=== PATIENT | male | born 1980 | race Two or more races ===

== ENCOUNTER 2018-06-30 08:15 | Emergency (ER) | payer OTHER ==
[~2018-06-30] VITALS: Ht 165.1 cm; Wt 73.0 kg
[2018-06-30] MEDS ORDERED: cloNIDine HCL 0.1 MG TAB PO ONE (08:30)
[2018-06-30 08:45] LABS: Basophils # (auto) 0.1 uL; Basophils % (auto) 0.8 % (0.0-2.0); Eosinophils # (auto) 0.4 uL; Eosinophils % (auto) 4.1 % (0.0-7.0); Hematocrit 48.2 % (41.0-53.0); Hemoglobin 16.2 g/dL (13.5-17.5); Lymphocytes % (auto) 34.4 % (10.0-50.0); Mean Corpuscular Hgb Conc. 33.6 g/dL (32.0-36.0); Mean Corpuscular Volume 86.2 fL (80.0-100.0); Monocytes # (auto) 0.3 uL; Monocytes % (auto) 3.9 % (0.0-12.0); Neutrophils % (auto) 56.8 % (37.0-80.0); Platelet Count (auto) 392 10^3/uL (140-450); Red Blood Cells 5.59 10^6/uL (4.5-5.90); Red Cell Distribution Width 13.7 % (11.8-14.3); White Blood Cell 8.8 10^3/uL (4.4-10.8)
[2018-06-30 09:13] LABS: Anion Gap 5 (5-15); Blood Urea Nitrogen 20 mg/dL (7-18); Calcium 8.5 mg/dL (8.5-10.1); Carbon Dioxide 28 mmol/L (21-32); Chloride 105 mmol/L (98-107); Glucose 155 mg/dL (74-106); Magnesium 2.4 mg/dL (1.6-2.6); Potassium 3.7 mmol/L (3.5-5.1); Sodium 138 mmol/L (136-145)
[2018-06-30 09:21] LABS: Alanine Aminotransferase 23 U/L (16-61); Albumin 2.1 g/dL (3.4-5.0); Alkaline Phosphatase 76 U/L (45-117); Aspartate Aminotransferase 22 U/L (15-37); BUN/Creatinine Ratio 11.2; Bilirubin, Total 0.2 mg/dL (0.2-1.0); GFR African American 55 mL/min; GFR Non-African American 45 mL/min; Total Protein 7.2 g/dL (6.4-8.2)
[2018-06-30 10:38] LABS: Urine Bacteria NONE SEEN /hpf (None Seen); Urine Blood 1+ /uL (Negative); Urine Budding Yeast OCCASIONAL /hpf (None Seen); Urine Hyaline Cast FEW /lpf (0 - 2); Urine Specific Gravity 1.006 (1.001-1.035); Urine WBC 1 /hpf (0 - 3)
[2018-06-30 11:05] VITALS: BP 154/84
== END 2018-06-30 11:18 | disposition home or self-care (01) ==
LOC: ER 08:21
DX: I10 Essential (primary) hypertension (principal); R51 Headache; E43 Unspecified severe protein-calorie malnutrition; Z68.26 Body mass index [BMI] 26.0-26.9, adult
CPT/HCPCS: 36415; 70450; 80053; 81001; 83735; 84484; 85025; 93005

== ENCOUNTER 2018-07-02 11:52 | Emergency (ER) | payer OTHER ==
[~2018-07-02] VITALS: Ht 167.6 cm; Wt 68.5 kg
[2018-07-02] MEDS ORDERED: cloNIDine HCL 0.1 MG TAB PO ONE (12:15)
[2018-07-02 13:51] VITALS: BP 118/79
== END 2018-07-02 13:55 | disposition home or self-care (01) ==
LOC: ER 11:52
DX: I10 Essential (primary) hypertension (principal); E11.9 Type 2 diabetes mellitus without complications; R51 Headache; H53.8 Other visual disturbances
CPT/HCPCS: 70450; 93005